=== PATIENT | male | born 1935 | race Caucasian/White ===

== ENCOUNTER → 2017-01-13 | Outpatient (CLI) | payer OTHER, MEDICARE | LOC: BMCIMAGING 14:18 | PROVIDERS: ATTEND Internal Medicine | DX: R06.2 Wheezing (principal); Z85.72 Personal history of non-Hodgkin lymphomas ==

== ENCOUNTER → 2017-01-28 | Outpatient (CLI) | payer OTHER, MEDICARE | LOC: FIMAGING 14:12 | PROVIDERS: ATTEND Internal Medicine | DX: J98.19 Other pulmonary collapse (principal); J98.09 Other diseases of bronchus, not elsewhere classified; R59.0 Localized enlarged lymph nodes ==

== ENCOUNTER 2017-03-10 10:27 | Day surgery (SDC) | payer OTHER, MEDICARE ==
[2017-03-10 11:27] LABS: HEMATOCRIT 43.2 % (40.0-51.0)
[2017-03-10] MEDS ORDERED: NS 1,000 ML IV SCH (11:30)
[2017-03-10 11:32] LABS: INR 1.06 (0.83-1.16); PROTIME(PATIENT) 13.7 SEC (12.0-15.0)
[2017-03-10 11:33] LABS: APTT 27.6 SEC (23.0-38.0)
[2017-03-10] MEDS ORDERED: fentaNYL 100 MCG/2 ML INJ ONE ×2 (11:33)
[2017-03-10] MEDS ORDERED: MIDAZOLAM 2 MG/2 ML VIAL ONE (11:33)
[2017-03-10] MEDS ORDERED: NALOXONE HCL 0.4 MG/ML INJ ONE (11:34)
[2017-03-10] MEDS ORDERED: FLUMAZENIL 0.5 MG/5 ML MDV IVP ONE (11:34)
[2017-03-10] MEDS ORDERED: IOPAMIDOL (ISOVUE-300) 100 ML BTL ONE (12:51)
[2017-03-10] MEDS ORDERED: LIDOCAINE 1% 300 MG/30 ML SDV ONE (13:44)
[2017-03-10 14:44] VITALS: BP 152/98; RESP 16
[2017-03-10 15:56] VITALS: O2SAT 92
[2017-03-10 15:58] VITALS: TEMP 97.3
== END 2017-03-10 15:50 | disposition home or self-care (01) ==
LOC: FIMAGING 10:27
PROVIDERS: ATTEND Internal Medicine Hematology & Oncology
PROC: BB2 Imaging, Respiratory System, Computerized Tomography (CT Scan) (ICD-10-PCS; principal; 2017-03-10 14:20)
DX: R59.0 Localized enlarged lymph nodes (principal); C85.90 Non-Hodgkin lymphoma, unspecified, unspecified site; R91.8 Other nonspecific abnormal finding of lung field; J98.19 Other pulmonary collapse
CPT/HCPCS: J2250; J2310; J3010; Q9967

== ENCOUNTER → 2017-04-08 | Day surgery (SDC) | payer OTHER, MEDICARE ==
[~2017-04-08] MED LIST: ACETAMINOPHEN 500 MG TAB PO PRN; BUPIVACAINE 0.5% 30 ML SDV ONE; HYDROCODONE/APAP 5/325 TAB PO PRN; LIDOCAINE 1% 2 ML INJ ID PRN; LR 1,000 ML IV ONE; MIDAZOLAM 2 MG/2 ML VIAL IVP ONE; MIDAZOLAM 2 MG/2 ML VIAL ONE; ONDANSETRON 4 MG/2 ML VIAL IVP PRN; PROPOFOL/EMULSION 500 MG/50 ML BOTTLE IV ONE; ceFAZolin 2 GM/DEXTROSE 100 ML IV ONE; fentaNYL 100 MCG/2 ML INJ ONE
--- NOTE | 2017-04-08 06:49 | PDANEPAE ---
ANE History of Present Illness here for mediastinoscopy ANE Past Medical History - Cardiovascular History Hx Hypertension: No Hx Arrhythmias: No Hx Chest Pain: No Hx Coronary Artery / Peripheral Vascular Disease: No Hx CHF / Valvular Disease: No Hx Palpitations: No - Pulmonary History Hx COPD: No Hx Asthma/Reactive Airway Disease: No Hx Recent Upper Respiratory Infection: Yes Hx Oxygen in Use at Home: No Hx Sleep Apnea: No Pulmonary History Comment: RUL COLLAPSE 01/2017. URI 12/2016. trouble with lungs r/t NHL - reason for biopsy - Neurologic History Hx Cerebrovascular Accident: No Hx Seizures: No Hx Dementia: No - Endocrine History Hx Diabetes: No - Renal History Hx Renal Disorders: No - Liver History Hx Hepatic Disorders: No - Neurological & Psychiatric Hx Hx Neurological and Psychiatric Disorders: No - Cancer History Hx Cancer: Yes Cancer History Comment: Non-Hodgkins Lymphoma dx 1999 - Congenital Disorder History Hx Congenital Disorders: No - GI History Hx Gastrointestinal Disorders: No - Other Health History Other Health History: DVT RT THIGH MANY YRS AGO - Chronic Pain History Chronic Pain: No - Surgical History Prior Surgeries: RT hernia repair 2013. right great toe. tonsils. APPENDECTOMY. ACL ANE Review of Systems Review of systems is: negative Review of Systems: - Exercise capacity Exercise capacity: >=4 METS METS (RN): 3 METS ANE Patient History - Allergies Allergies/Adverse Reactions: No Allergies [NKDA] Allergy (Verified 03/04/17 14:57) - Home Medications Home medications: home medication list seen and reviewed Home Medications: Aspirin 81mg (*) DAILY 03/04/17 [Last Taken 04/03/17] Multi-Vitamin Daily DAILY 03/04/17 [Last Taken 04/03/17] - NPO status NPO Status: no food or drink >8 hours - Anes Hx Anes Hx: no prior problems - Smoking Hx Smoking Status: Former smoker - Family Anes Hx Family Hx Anesthesia Complications: denies ANE Labs/Vital Signs - Vital Signs Height: 177.8 cm Weight: 81.647 kg ANE Physical Exam - Airway Neck exam: FROM Mallampati Score: Class 2 Mouth exam: normal dental/mouth exam - Pulmonary Pulmonary: no respiratory distress - ASA Status ASA Status: III ANE Anesthesia Plan Anesthesia Plan: general endotracheal anesthesia
[2017-04-08 06:50] VITALS: PULSE 86
--- NOTE | 2017-04-08 06:57 | PDHPUP ---
History & Physical Update H&P update statement: This history and physical update is based on an assessment of the patient which was completed after admission or registration (within 24 hours), but prior to the surgery/procedure. H&P update: H&P reviewed & patient examined, no change in patient's condition since H&P completed
[2017-04-08 08:56] VITALS: TEMP 97.5
[2017-04-08 09:17] VITALS: BP 146/87; RESP 18; O2SAT 92
--- NOTE | 2017-04-09 12:01 | POSTANESTH ---
Post Anesthetic Evaluation Cardiovascular Status: Normal, Stable Respiratory Status: Normal, Stable Level of Consciousness/Mental Status: Can Participate in Eval Pain Control: Adequate, Prn Tx Ordered Nausea/Vomiting Control: Adequate, Prn Tx Ordered Complications Possibly Related to Anesthesia: None Noted
[2017-04-10 13:21] LABS: FINAL DIAGNOSIS See Comments; MICROSCOPIC DESCRIPTION See Comments
== END | disposition home or self-care (01) ==
LOC: FSGY 05:41
PROVIDERS: ATTEND Thoracic Surgery (Cardiothoracic Vascular Surgery)
PROC: 07B74ZX Excision of Thorax Lymphatic, Percutaneous Endoscopic Approach, Diagnostic (ICD-10-PCS; principal; 2017-04-08 07:15)
DX: C83.32 Diffuse large B-cell lymphoma, intrathoracic lymph nodes (principal); C82.32 Follicular lymphoma grade IIIa, intrathoracic lymph nodes; Z87.891 Personal history of nicotine dependence
CPT/HCPCS: 88184-90; 88185-91; J0690; J2250; J2704; J3010

== ENCOUNTER 2017-04-24 13:08 | Day surgery (SDC) | payer OTHER, MEDICARE ==
--- NOTE | 2017-04-24 07:41 | GHP ---
[f rep st] HISTORY AND PHYSICAL DATE OF ADMISSION: 04/24/2017 CHIEF COMPLAINT: Recurrent follicular lymphoma. HISTORY OF PRESENT ILLNESS: The patient is an 82-year-old with a history of recurrent lymphoma. He initially had lymphoma in the year 1999. He had a mediastinoscopy which did show follicular lymphoma. He requires a port for chemotherapy. He has had previous ports in his right chest. He feels quite well. PAST MEDICAL HISTORY: Lymphoma. PAST SURGICAL HISTORY: Biopsies. MEDICATIONS: Aspirin, multivitamins. ALLERGIES: No known drug allergies. REVIEW OF SYSTEMS: A 10-point review of systems is negative except for cough. PHYSICAL EXAMINATION: GENERAL: Pleasant, well-nourished, well-groomed man at visit with . HEENT: Normocephalic. No gross hearing deficits. Mucous membranes moist. Pupils equal and round. No scleral icterus. Neck: Well healed incision from mediastinoscopy. No signs of infection. LUNGS: Clear to auscultation bilaterally, decreased in the upper right field. CARDIAC: Regular rate. No peripheral edema. ABDOMEN: Deferred. SKIN: Warm and dry. MUSCULOSKELETAL: Normal gait, normal nails. PSYCH: Mood and affect normal. NEURO: Grossly intact. IMPRESSION AND PLAN: The patient is an 82-year-old with recurrent lymphoma. We will place a port for him. I will place this on the left side as he has had 2 previous ports on the right side and I am unable to determine if the access was through the same vein in order to avoid stenosis. I will use a low-profile Power Port. The risks and benefits, including, but not limited to, infection, bleeding, pneumothorax, acknowledging that he already has upper lobe collapse, were discussed. He had his questions answered to his satisfaction. /[id number]/MODL MTDD
[2017-04-24] MEDS ORDERED: BUPIVACAINE 0.5% 30 ML SDV ONE (14:07)
[2017-04-24] MEDS ORDERED: ceFAZolin 2 GM/SWFI 2 GM/20 ML SYR IVP ONE (14:52)
--- NOTE | 2017-04-24 15:02 | PDANEPAE ---
ANE History of Present Illness 82 year old male w/ NHL presents for left chest port placement. ANE Past Medical History - Cardiovascular History Hx Hypertension: No Hx Arrhythmias: No Hx Chest Pain: No Hx Coronary Artery / Peripheral Vascular Disease: No Hx CHF / Valvular Disease: No Hx Palpitations: No - Pulmonary History Hx COPD: No Hx Asthma/Reactive Airway Disease: No Hx Recent Upper Respiratory Infection: Yes Hx Oxygen in Use at Home: No Hx Sleep Apnea: No Sleep Apnea Screening Result - Last Documented: Negative Pulmonary History Comment: RUL COLLAPSE 01/2017. URI 12/2016. trouble with lungs r/t NHL - reason for biopsy - Neurologic History Hx Cerebrovascular Accident: No Hx Seizures: No Hx Dementia: No - Endocrine History Hx Diabetes: No Hypothyroid: No Hyperthyroid: No Obesity: no - Renal History Hx Renal Disorders: No - Liver History Hx Hepatic Disorders: No - Neurological & Psychiatric Hx Hx Neurological and Psychiatric Disorders: No - Cancer History Hx Cancer: Yes Cancer History Comment: Non-Hodgkins Lymphoma dx 1999 - Congenital Disorder History Hx Congenital Disorders: No - GI History Hx Gastrointestinal Disorders: No - Other Health History Other Health History: DVT RT THIGH MANY YRS AGO - Chronic Pain History Chronic Pain: No - Surgical History Prior Surgeries: 04/08/17 MEDIASTINOSCOPY WITH CROW. RT hernia repair 2013. right great toe. tonsils. APPENDECTOMY. ACL ANE Review of Systems Review of systems is: negative Review of Systems: - Exercise capacity Exercise capacity: >=4 METS METS (RN): 4 METS ANE Patient History - Allergies Allergies/Adverse Reactions: No Allergies [NKDA] Allergy (Verified 04/23/17 16:53) - Home Medications Home medications: home medication list seen and reviewed Home Medications: Aspirin 81mg (*) DAILY 03/04/17 [Last Taken 04/03/17] Multi-Vitamin Daily DAILY 03/04/17 [Last Taken 04/03/17] - NPO status NPO Since - Liquids (Date): 04/24/17 NPO Since - Liquids (Time): 06:00 NPO Since - Solids (Date): 04/23/17 NPO Since - Solids (Time): 22:00 - Anes Hx Anes Hx: post operative nausea - Smoking Hx Smoking Status: Former smoker Marijuana use: No - Alcohol Use Alcohol Use: Occasionally - Family Anes Hx Family Anes Hx: neg - N/A Family Hx Anesthesia Complications: NONE ANE Labs/Vital Signs - Vital Signs Vital Signs: reviewed preoperatively; see RN documention for details Blood Pressure: 147/94 Heart Rate: 73 Respiratory Rate: 16 O2 Sat (%): 95 Height: 177.8 cm Weight: 81.647 kg ANE Physical Exam - Airway Neck exam: FROM Mallampati Score: Class 2 Mouth exam: normal dental/mouth exam - Pulmonary Pulmonary: no respiratory distress - Cardiovascular Cardiovascular: regular rate and rhythym - ASA Status ASA Status: III ANE Anesthesia Plan Anesthesia Plan: GA with mask Total IV Anesthesia: Yes
[2017-04-24] MEDS ORDERED: PROPOFOL/EMULSION 500 MG/50 ML BOTTLE IV ONE ×2 (15:09→15:54)
[2017-04-24] MEDS ORDERED: DEXAMETHASONE 4 MG/ML VIAL ONE (15:14)
[2017-04-24] MEDS ORDERED: ONDANSETRON 4 MG/2 ML VIAL ONE (15:14)
--- NOTE | 2017-04-24 16:09 | POSTOPPROG ---
Post Op Note Date of Operation: 04/24/17 Surgeon: Gerri Prado Anesthesiologist: artem Anesthesia: GET(General Endotracheal) Pre-op Diagnosis: lymphoma Post-op Diagnosis: same Indication: 82 yo with recurrent lymphoma Procedure: l ij slim power port Inf/Abcess present in the surg proc area at time of surgery?: No Depth: Superfical (Skin SQ) EBL: Minimal Specimen(s): none
[2017-04-24 16:43] VITALS: TEMP 97.3
[2017-04-24 17:03] VITALS: PULSE 63
[2017-04-24 17:37] VITALS: BP 140/90; RESP 15; O2SAT 94
--- NOTE | 2017-04-24 18:07 | POSTANESTH ---
Post Anesthetic Evaluation Cardiovascular Status: Normal, Stable, Similar to Pre-Op Cond Respiratory Status: Normal, Stable, Similar to Pre-op Cond. Level of Consciousness/Mental Status: Can Participate in Eval, Alert and Oriented Pain Control: Adequate, Prn Tx Ordered Nausea/Vomiting Control: Adequate, Prn Tx Ordered Complications Possibly Related to Anesthesia: None Noted
--- NOTE | 2017-04-25 09:06 | GOP ---
[f rep st] OPERATIVE REPORT DATE OF OPERATION: 04/24/2017 SURGEON: Gerri Prado MD ANESTHESIA: General. ANESTHESIOLOGIST: Tay Stevens MD PREOPERATIVE DIAGNOSIS: Lymphoma. POSTOPERATIVE DIAGNOSIS: Lymphoma. PROCEDURE PERFORMED: Left ultrasound-guided internal jugular PowerPort placement. FINDINGS: Tip in the SVC. SPECIMENS: None. ESTIMATED BLOOD LOSS: 10 cc. INDICATIONS: The patient is an 82-year-old with recurrent follicular lymphoma. He presents for port placement. DESCRIPTION OF PROCEDURE: The patient was brought into the operating room and placed supine on the table, and general anesthesia was administered. His bilateral neck and chest were prepped and draped in the usual sterile fashion. He was placed in the Trendelenburg position. Using ultrasound, I accessed his left internal jugular vein on the first attempt with dark return of blood flow. I threaded the guidewire and removed the needle. Placement was confirmed with fluoroscopy. I created a pocket to accommodate the port in the left chest. I tunneled this up to the insertion site. The catheter was measured under fluoroscopy and cut to size. Using the Seldinger technique, I placed a dilator and sheath over the wire. I removed the wire and the dilator. I threaded the catheter through the sheath and peeled away the sheath. Placement was confirmed with fluoroscopy. The port withdrew blood easily and was flushed with 5 cc of heparin. Hemostasis was achieved. The pocket was closed with 3-0 Vicryl followed by 4-0 Monocryl. Dermabond applied. He was awakened in the operating room, extubated and transferred to PACU in stable condition. The chest x-ray showed the tip at the cavoatrial junction without pneumothorax. /[id number]/MODL MTDD
== END 2017-04-24 17:39 | disposition home or self-care (01) ==
LOC: FSGY 13:08
PROVIDERS: ATTEND Surgery
PROC: 02HV33Z Insertion of Infusion Device into Superior Vena Cava, Percutaneous Approach (ICD-10-PCS; principal; 2017-04-24 14:45)
PROC: 0JH63XZ Insertion of Tunneled Vascular Access Device into Chest Subcutaneous Tissue and Fascia, Percutaneous Approach (ICD-10-PCS; principal; 2017-04-24 14:45)
DX: C83.30 Diffuse large B-cell lymphoma, unspecified site (principal)
CPT/HCPCS: C1788; J0690; J1100; J1642; J2405; J2704

== ENCOUNTER → 2017-09-04 | Outpatient (CLI) | payer OTHER, MEDICARE | LOC: FIMAGING 09:22 | PROVIDERS: ATTEND Nurse Practitioner | DX: J98.4 Other disorders of lung (principal) ==

== ENCOUNTER 2017-10-02 09:48 | Observation (INO) | payer OTHER, MEDICARE ==
--- NOTE | 2017-10-02 10:16 | EDPHY ---
HPI/HX/ROS/PE/MDM Narrative: CHIEF COMPLAINT: Right lower chest pain HPI: The patient is an 82 y/o male with non-Hodgkin's lymphoma who recently completed chemotherapy and complains of right lower chest pain onset 3 days ago. He has had "recurring flu symptoms for 8 weeks" with fever, cough, and chills, since he was diagnosed with the flu in July. His last chemotherapy treatment was 3 weeks ago. Three days ago he developed this lower chest pain he describes as in his lung and says it sometimes creeps across his upper abdomen. No change in shortness of breath symptoms. REVIEW OF SYSTEMS: Aside from elements discussed in the HPI, a comprehensive 10-point review of systems was reviewed and is negative. PMH: Non-Hodgkin's and follicular lymphoma post biopsies; appendectomy; hernia repair; tonsillectomy; toe surgery SOCIAL HISTORY: Nonsmoker. Alcohol occasionally. Retired. . Oncologist: Dr. Segovia. Prior medical records reviewed including [facility] note 02/12/17 for follicular lymphoma PHYSICAL EXAM: General:Patient is alert, in no acute distress. ENT:Eyes are normal to inspection. ENT inspection normal. Neck: Normal inspection. Full range of motion. Respiratory:No respiratory distress. Breath sounds normal bilaterally. Cardiovascular: Regular rate and rhythm. Strong peripheral pulses. Normal cap refill. Port left chest. Abdomen:The abdomen is nontender to palpation. There are no peritoneal signs. Back: Normal to inspection. No tenderness to palpation. Skin: Normal color. No rash. Warm and dry. Extremities: Normal appearance. Full range of motion. Neuro: Oriented x3. Normal motor function. Normal sensory function. ED Course: This is an 82 y/o male with non-Hogkin's lymphoma who completed chemotherapy 3 weeks ago and complains of a 3-day history of right lower chest pain. He's had flu-like symptoms underlying this for the last 8 weeks. He is generally elderly but well-appearing on exam. Plan for labs and chest x-ray. Chest x-ray shows nothing acute. D-dimer elevated at 5.33. Chest CTA ordered. Chest CTA shows scattered bilateral PEs. Reassessed patient and discussed work up. Recommended admission, which he agrees to. MESHA Lovenox ordered. Spoke with hospitalist service. accepts admission. MDM: I see no signs of TAD, PNA, ACS, sepsis or severe hypoxia. - Data Points Imaging Results: Imaging Impressions Chest X-Ray 10/02/17 10:16 Impression: 1. Stable prominent interstitial markings at the lung bases probably representing chronic fibrotic change or atelectasis. Chest/Thorax CTA 10/02/17 11:15 Impression: 1. Small volume of segmental/subsegmental pulmonary emboli. 2. Indeterminate consolidation, possibly related to infarct, atelectasis, or other etiology. Short-term follow-up CT is recommended in 3 months. 3. Coronary artery atherosclerosis in the LAD. 4. Additional findings as above. Findings discussed with Floyd Marte MD, 10/02/2017 at 12:04. Imaging: Discussed imaging studies w/ call center team leader Radiologist, I viewed and interpreted images myself Laboratory Results: Laboratory Results 10/02/17 10:18 10/02/17 10:18 10/02/17 10/02/17 10/02/17 10:18 10:18 10:18 WBC 3.91 10^3/uL 10^3/uL (3.80-9.50) RBC 3.81 10^6/uL L 10^6/uL (4.40-6.38) Hgb 11.9 g/dL L g/dL (13.7-17.5) Hct 35.1 % L % (40.0-51.0) MCV 92.1 fL fL (81.5-99.8) MCH 31.2 pg pg (27.9-34.1) MCHC 33.9 g/dL g/dL (32.4-36.7) RDW 15.0 % % (11.5-15.2) Plt Count 116 10^3/uL L 10^3/uL (150-400) MPV 9.3 fL fL (8.7-11.7) Neut % (Auto) Not Reported Lymph % (Auto) Not Reported Stanley % (Auto) Not Reported Eos % (Auto) Not Reported Baso % (Auto) Not Reported Nucleat RBC Rel Count 0.0 % % (0.0-0.2) Absolute Neuts (auto) Not Reported Absolute Lymphs (auto) Not Reported Absolute Monos (auto) Not Reported Absolute Eos (auto) Not Reported Absolute Basos (auto) Not Reported Absolute Nucleated RBC 0.00 10^3/uL 10^3/uL (0-0.01) Immature Gran % Not Reported Seg Neutrophils % 68 % % Band Neutrophils % 2 % % Lymphocytes % 7 % % Monocytes % 21 % % Eosinophils % 1 % % Basophils % 1 % % Immature Gran # Not Reported Absolute Seg Neuts 2.66 10^/uL 10^/uL (1.70-6.50) Absolute Band Neuts 0.08 10^3/uL 10^3/uL (0.00-0.70) Absolute Lymphocytes 0.27 10^3/uL L 10^3/uL (1.00-3.00) Absolute Monocytes 0.82 10^3/uL H 10^3/uL (0.30-0.80) Absolute Eosinophils 0.04 10^3/uL 10^3/uL (0.03-0.40) Absolute Basophils 0.04 10^3/uL 10^3/uL (0.02-0.10) RBC/WBC/PLT Morphology NORMAL (NORMAL) Platelet Estimate DECREASED L (ADEQ) Smear Review By Pending D-Dimer 5.33 ug/mLFEU H ug/mLFEU (0.00-0.50) Sodium 138 mEq/L mEq/L (135-145) Potassium 3.7 mEq/L mEq/L (3.5-5.2) Chloride 99 mEq/L mEq/L (97-110) Carbon Dioxide 26 mEq/l mEq/l (22-31) Anion Gap 13 mEq/L mEq/L (8-16) BUN 20 mg/dL mg/dL (7-23) Creatinine 1.0 mg/dL mg/dL (0.7-1.3) Estimated GFR > 60 Glucose 110 mg/dL H mg/dL (70-100) Calcium 9.2 mg/dL mg/dL (8.5-10.4) Troponin I < 0.012 ng/mL ng/mL (0.000-0.034) General Time Seen by Provider: 10/02/17 09:55 Initial Vital Signs: Initial Vital Signs Heart Rate 94 10/02/17 09:49 Respiratory Rate 18 10/02/17 09:49 Blood Pressure 129/100 H 10/02/17 09:49 O2 Sat (%) 97 10/02/17 09:49 O2 Delivery Mode Room Air Allergies/Adverse Reactions: No Allergies [NKDA] Allergy (Verified 04/23/17 16:53) Home Medications: Medication Instructions Recorded Aspirin [Aspirin 81mg (*)] 81 mg PO DAILY #0 03/04/17 Multivitamins [Multivitamin (*)] 1 each PO DAILY #0 03/04/17 Departure - Departure Disposition: [facility] Inpatient Acute Clinical Impression: Pulmonary embolism, bilateral Condition: Fair Report Scribed for: Floyd Marte Report Scribed by: Sari Leo Date of Report: 10/02/17 Time of Report: 10:18 Physician Review and Approval Statement: Portions of this note were transcribed by an ED scribe. I personally performed the history, physical exam, and medical decision making; and confirm the accuracy of the information in the transcribed note.
[2017-10-02 10:27] LABS: PLATELET COUNT 116 10^3/uL (150-400)
[2017-10-02] MEDS ORDERED: IOPAMIDOL (ISOVUE 370) 100 ML BTL IV ONE (11:22)
[2017-10-02] MEDS ORDERED: ENOXAPARIN 80 MG/0.8 ML SYR SC ONE (12:25)
[2017-10-02] MEDS ORDERED: ZOLPIDEM TARTRATE 5 MG TAB PO PRN (13:16)
[2017-10-02] MEDS ORDERED: ACETAMINOPHEN 325 MG TAB PO PRN (13:16)
[2017-10-02] MEDS ORDERED: ONDANSETRON DISINTEGRATING 4 MG TAB PO PRN (13:16)
[2017-10-02] MEDS ORDERED: ONDANSETRON 4 MG/2 ML VIAL IVP PRN (13:16)
--- NOTE | 2017-10-02 13:20 | PDGENHP ---
History and Physical History and Physical: CC: Sent from ER with diagnosis of PE, right-sided chest ache HISTORY: This patient who is being treated for lymphoma was doing reasonably well but around a week ago notice some swelling in both calves and ankles. He did not think much of this but worse some compression stockings and has had a noticeable decrease in that swelling. There was no associated pain or fever or injury. He noticed an onset of add a at the low lateral right ribcage a couple of days ago and this is persisted. It is not necessarily pleuritic and is not associated with any cough shortness of breath or fever. There was no injury and it is not aggravated by any other movements. He came to ER for evaluation and on CT scan has several small subsegmental pulmonary emboli and a probable small left lower lobe infarct, no pleural abnormalities noted. He is given a dose of Lovenox and is now admitted to the hospital. Patient has a recurrence of his follicular cell lymphoma. This occurrence was in March of 2017 with abdominal adenopathy. He has been receiving Treanda and Gazyva, received his 6th of 6 doses on September 15. He is to have follow-up abdominal CT scan on October 15. He has not had any other side effects of chemotherapy that he knows about. The patient does have 1 prior history of DVT in the leg when he was being treated with chemotherapy for his lymphoma about 5 years ago. No other thromboembolic episodes. He is not a smoker, has no recent travel, no injuries no immobilization and there is no family history of thromboembolic disease ROS: A comprehensive 10 system review revealed no other significant findings PAST MEDICAL HISTORY: -DVT of leg 5 years ago while being treated for lymphoma -follicular lymphoma originally diagnosed in 1999, initially located in his jaw. He has had chemotherapy then and has had recurrences treated with chemotherapy most recently a recurrence in his abdomen in lymph nodes in March 2017. He has been treated for that recurrence with treanda and gazyva -hernia repair -Appendectomy FAMILY MEDICAL HISTORY: No concerning related illnesses SOCIAL HISTORY: Retired, lives with his who is here at the bedside and very supportive No tobacco very little alcohol MEDICATIONS: The patients list has been reconciled by our clinical pharmacist in the EMR. I have reviewed the list and ordered appropriate medicines. 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, no focal weakness IV site: looks normal LABORATORY DATA: Mild normocytic anemia and thrombocytopenia otherwise normal CBC Unremarkable chemistry RADIOLOGY STUDIES: I reviewed CT scan of his chest done today and my review of the images shows 3 small subsegmental bilateral pulmonary emboli and a small left lower lobe pulmonary parenchymal density most consistent with a small infarct, could not rule out either infection or tumor based on its appearance ASSESSMENT: -acute pulmonary emboli without evidence of shock or respiratory failure -small lesion in left lower lobe probably represents pulmonary infarct but this should be followed and compared to prior imaging and upcoming imaging to make sure does not represent disease related to his lymphoma -recent swelling in both legs this past week likely represented DVTs, will do ultrasound of legs to assess clot burden in his legs for prognostic factors -elevated blood pressure with no history of hypertension; suspect this is due to the anxiety of coming to the hospital but will follow this closely and treat as indicated -mild anemia and thrombocytopenia related to his lymphoma and chemotherapy -recent recurrence of follicular lymphoma, just finished his chemotherapy with planned reimaging in a couple weeks At this time he really has very small clot burden without any respiratory or hematologic change. From that standpoint this is very low risk but it is possible he has significant clot still in his legs. Notably the edema in his legs has decreased quite a bit though. Will want to watch initially in the hospital for stability but he may be able to go home very soon on therapy. As he has lymphoma and has just finished treatment will want a review with Oncology to see whether he should continue with Lovenox or switch to an oral therapy I reviewed the treatment rationale, bleeding risks and other issues of therapy for PE with patient and his at the bedside tonight PLANS: -placed on observation, may need to change to inpatient if there are clinical changes or we need ongoing monitoring here in hospital -continue Lovenox for now, discuss optimal anticoagulant regimen with oncology -ultrasound of his legs tonight to assess for clot their -follow blood pressure closely and treat if it remains difficult elevated -he should have follow-up of the lung density in the left lower lobe or at least comparison to previous lung imaging from the Oncology Clinic; if this is a new lesion it may be advisable to re-scanned it later this month 20 is having his follow-up abdominal study for his tumor I have reviewed the patient's case in detail with Dr. Bart Kramer I have reviewed the patient's past medical records as part of this assessment, including oncology clinic records and prior hospital records
[2017-10-02] MEDS ORDERED: OXYCODONE/APAP 5/325 TAB PO PRN (18:02)
[2017-10-02] MEDS: OXYCODONE/APAP 5/325 TAB PO PRN (21:50)
[2017-10-03] MEDS: OXYCODONE/APAP 5/325 TAB PO PRN (04:55)
[2017-10-03 05:19] LABS: PLATELET COUNT 119 10^3/uL (150-400)
[2017-10-03 08:45] VITALS: BP 129/94
[2017-10-03] MEDS ORDERED: MULTIVITAMINS 1 EACH TAB PO SCH (09:00)
[2017-10-03] MEDS ORDERED: RIVAROXABAN 15 MG TAB PO SCH (12:15)
--- NOTE | 2017-10-03 13:42 | GDS ---
[f rep st] DISCHARGE SUMMARY DISCHARGE DIAGNOSES: 1. Deep vein thrombosis. 2. Pulmonary emboli. PROCEDURES DONE: 1. CT angio of the chest. 2. Venous doppler. PHYSICAL EXAM: GENERAL: The patient is alert VITAL SIGNS: Afebrile at 36.4, pulse 89, respiratory rate is 18, blood pressure is 129/94, he is saturating 95% on room air. I have seen and evaluated t he patient on the day of discharge. HOSPITAL COURSE: The patient is an 82-year-old male who presented to the emergency room with complai nts of right-sided chest ache. He was evaluated and diagnosed with. 1. Acute pulmonary emboli. He did receive a consultation during this hospitalization from Dr. Rudolph aguilera Oncology. He has been initiated on Xarelto, dose has been given prior to disposition and a prescri ption has been provided for the patient at the time of disposition. He will continue his Xarelto 15 mg twice daily for a total of 21 days and transition to a regular therapeutic dose in the outpatient setting with his primary oncologist's recommendations. 2. Small lesion in the left lower lobe. This is likely secondary to the patient's pulmonary infarct . However, should be followed in the outpatient setting given his history of lymphoma. 3. Bilateral lower extremity edema. The patient does have DVTs. His edema is significantly improve d today. He will continue on the Xarelto. He has positive pulses bilaterally, and no further interv ention is warranted at this time. 4. Hypertension. This is in the setting of anxiety and has improved. 5. Anemia with thrombocytopenia. The patient has a diagnosis of lymphoma and chemotherapy. Labs are stable. 6. Recurrence of follicular lymphoma. The patient is on chemotherapy treatment. Will follow with h is Oncologist outside the hospital. DISPOSITION: He will be discharged home independently. FOLLOWUP: Will be with his primary Oncologist, Dr. Kramer. DISCHARGE MEDICATIONS: I have provided him a prescription for Percocet as well as Xarelto. PENDING STUDIES: There are no pending studies. /[id number]/MODL
--- NOTE | 2017-10-03 16:27 | GCON ---
[f rep st] CONSULTATION HEMATOLOGY/ONCOLOGY CONSULTATION REASON FOR CONSULTATION: PE. REQUESTING PHYSICIAN: . HISTORY OF PRESENT ILLNESS: The patient is an 82-year-old gentleman with a history of recurrent lymphoma treated by Dr. Segovia. He was admitted yesterday after presenting to the emergency room for right lower chest pain for the past few days. He reports having "the flu" recently with fever and cough, which had improved; and he thought maybe the new symptoms were related to that. In the emergency room, CT angiogram demonstrated small-volume segmental/ subsegmental pulmonary emboli. In comparison with chest CT 01/28/2017, left lower lobe consolidation was new as was some linear consolidation in the right lower lobe. Bilateral lower extremity Dopplers demonstrated no DVT in the left lower extremity. In the right, there was a duplicated right femoral vein with the smaller vessel occluded from the proximal to distal thigh with the larger adjacent femoral vein being patent. Popliteal clot also present. He was treated with Lovenox. He is accompanied by his and son. He feels ready to go home today. Overall, he feels well. He denies dyspnea. He has had relief of his chest pain with Percocet. He has had no bleeding. He has a past medical history of non-Hodgkin lymphoma. 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 This was treated with radiation. He has had multiple recurrences and therapy including R -CHOP. He had fludarabine/mitoxantrone/dexamethasone/Rituxan in 2003. It recurred in 2004 and he received Rituxan-Cytoxan, carboplatin, and etoposide, followed by autologous transplant. 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 In 2010, he had a recurrence in the chest and received 3 cycles of bendamustine/Rituxan. Most recently, he was found to have mediastinal disease. Mediastinoscopy with biopsy demonstrated 80% follicular lymphoma and 20% diffuse large B-cell lymphoma. He completed 6 cycles of bendamustine/obinutuzumab 09/15/2017. He is scheduled for restaging CT chest, abdomen and pelvis 10/15/[address] Segovia 10/19/2017. PAST MEDICAL HISTORY: 1. Lymphoma, as above. 2. History of DVT approximately 5 years ago. PAST SURGICAL HISTORY: Hernia repair and appendectomy. FAMILY HISTORY: Noncontributory. SOCIAL HISTORY: He is and lives with his in [place]. A nonsmoker. REVIEW OF SYSTEMS: CONSTITUTIONAL: He has good energy. No fever or chills. HEENT no oral ulcers. CARDIOVASCULAR: Per HPI. He noted some bilateral lower extremity edema about a week ago. RESPIRATORY: Per HPI. No dyspnea. GI: No abdominal pain. No changes in bowel habits. HEMATOLOGIC: No bruising or bleeding. PHYSICAL EXAM: VS reviewed. Gen: very pleasant, alert and oriented. Telling jokes. Lungs: breathing comfortably, CTA. CV: no lower extremity edema. Skin: no petechiae, ecchymoses. Neuro: non-focal. LABORATORY DATA: WBC 2.9, ANC1.92. Hemoglobin 11.1, platelets 119,000. Creatinine 0.9. RADIOLOGIC STUDIES: Per HPI. IMPRESSION: 1. Segmental/subsegmental pulmonary emboli. 2. Right lower extremity deep vein thrombosis in one arm of duplicated femoral vein and popliteal vein. 3. New pulmonary consolidation (left lower lobe, right lower lobe), possible pulmonary infarcts. 4. Diffuse large B-cell lymphoma and follicular lymphoma, status post 6 cycles of bendamustine/obinutuzumab. DISCUSSION: The patient is minimally symptomatic with only some right lower chest pain. It is not entirely clear if this is related to the pulmonary emboli or not. His most recent CT of the chest, abdomen, and pelvis (07/16/2017 ) demonstrated no significant intraabdominal involvement which might predispose to lower extremity DVT. He has adequate renal function and platelet count for anticoagulation with Xarelto, and he will be started on that today prior to discharge. He will have restaging CT chest, abdomen and pelvis later this month, and the pulmonary findings can be compared at that time. We will make arrangements for him to have earlier followup in the office upon discharge. /[id number]/MODL MTDD
== END 2017-10-03 13:00 | disposition home or self-care (01) ==
LOC: OBSVTOIN 12:26 → INTOOBSV 12:26 → F3N 13:15
PROVIDERS: ADMIT Internal Medicine; ATTEND Internal Medicine
DX: I26.99 Other pulmonary embolism without acute cor pulmonale (principal); I82.411 Acute embolism and thrombosis of right femoral vein; I82.431 Acute embolism and thrombosis of right popliteal vein; C82.92 Follicular lymphoma, unspecified, intrathoracic lymph nodes; C83.32 Diffuse large B-cell lymphoma, intrathoracic lymph nodes; R91.8 Other nonspecific abnormal finding of lung field; D69.59 Other secondary thrombocytopenia; D64.81 Anemia due to antineoplastic chemotherapy; R60.9 Edema, unspecified; I10 Essential (primary) hypertension; Z86.718 Personal history of other venous thrombosis and embolism; Z87.891 Personal history of nicotine dependence
CPT/HCPCS: 71046; 71275; 93970; 99285; G0378; J1642; J1650; Q9967

== ENCOUNTER 2017-10-10 11:40 | Emergency (ER) | payer OTHER, MEDICARE ==
--- NOTE | 2017-10-10 12:42 | EDPHY ---
H & P Time Seen by Provider: 10/10/17 12:20 HPI/ROS: HISTORY OF PRESENT ILLNESS: Patient states he has had abdominal pain since approximately 10/03. He has complex past medical history with non-Hodgkin's lymphoma diagnosed 18 years ago. He has had several recurrences with most recent recurrence in January of 2017. He recently finished his 6th round of chemotherapy under the care of Dr. Segovia. He states he has had flu-like symptoms with fatigue, chills, decreased appetite and night sweats for several months. On the 03 of October he had right upper quadrant abdominal pain that was sharp, intermittent. Sometimes only 1-2 seconds. Min to hours in between episodes. Much worse at night with constant"chronic, dull pain under the rib cage". He states he has been taking 3-4 Percocet every night for this pain. He denies nausea, vomiting, diarrhea or constipation. He has had weight loss. No fevers. Patient also received a CT PET scan yesterday at [facility] which was reviewed by Dr. Segovia with no evidence or explanation for the abdominal pain or pathology. Also recently diagnosed with pulmonary embolism and started on Xarelto. This was discovered on the 02 of October. REVIEW OF SYSTEMS: Constitutional: No fever, no chills. Eyes: No discharge. ENT: No sore throat. Cardiovascular: No chest pain, no palpitations. Respiratory: No cough, no shortness of breath. Gastrointestinal: Per HPI Genitourinary: No dysuria. Musculoskeletal: No back pain. Skin: No rashes. Neurological: No headache. General Appearance: Alert, no distress. Eyes: Pupils equal and round no pallor or injection. ENT, Mouth: Mucous membranes moist. Respiratory: There are no retractions, lungs are clear to auscultation. Cardiovascular: Regular rate and rhythm. Normal femoral pulses. No edema. Gastrointestinal: Abdomen is soft and nontender, no masses, bowel sounds normal. No CVA tenderness. Neurological: Awake and alert, no focal neurologic deficits. Skin: Warm and dry, no rashes. Musculoskeletal: Neck is supple nontender. Extremities are symmetrical, full range of motion, no edema. Psychiatric: Patient is oriented X 3, there is no agitation. Medical/surgical history: Non-Hodgkin's lymphoma, pulmonary embolism Social history: lives with . Nonsmoker. Smoking Status: Former smoker Constitutional: Initial Vital Signs Temperature (C) 36.6 C 10/10/17 11:46 Heart Rate 90 10/10/17 11:46 Respiratory Rate 16 10/10/17 11:46 Blood Pressure 118/86 H 10/10/17 11:46 O2 Sat (%) 94 10/10/17 11:46 O2 Delivery Mode Room Air Allergies/Adverse Reactions: No Allergies [NKDA] Allergy (Verified 04/23/17 16:53) Home Medications: Medication Instructions Recorded Multivitamins [Multivitamin (*)] 1 each PO DAILY #0 03/04/17 Acetaminophen [Tylenol 325mg (*)] 650 mg PO Q4HRS PRN tab 10/03/17 Rivaroxaban [Xarelto 15mg (*)] 15 mg PO BID #42 tab 10/03/17 oxyCODONE HCL/ACETAMINOPHEN 1 each PO Q6 #15 tablet 10/03/17 [Percocet 5-325 mg Tablet] oxyCODONE HCL/ACETAMINOPHEN 1 each PO Q6-8PRN PRN 3 Days #10 10/10/17 [Percocet 5-325 mg Tablet] tablet Medical Decision Making - Diagnostics Imaging Results: Chest x-ray no acute findings. Ultrasound sludge in gallbladder but no definitive signs of cholecystitis. Otherwise normal ultrasound of the abdomen. Imaging: Discussed imaging studies w/ entrepreneur Radiologist, I viewed and interpreted images myself ED Course/Re-evaluation: Ultrasound in Room obtaining images. Re-evaluation after ultrasound results obtained, no change, a no tenderness to abdomen, no peritoneal findings. Discussed with Dr. Josy Funes, oncology, at 2:26 p.m.. Plan for follow-up as scheduled with Dr. Segovia on Thursday. Differential Diagnosis: Differential diagnosis includes but is not limited to worsening non-Hodgkin's lymphoma, cholecystitis, bowel obstruction, gastroenteritis, pleurisy. After evaluation unclear cause of this patient's intermittent right upper quadrant pain. Admittedly worse at night but no definitive findings of cholecystitis or other biliary disease. No nausea, vomiting, diarrhea to suggest gastroenteritis. No signs of obstruction or other acute surgical abdomen. Discussed other workup including possible HIDA scan if symptoms persist. Will write for Percocet for several days until patient able to follow up with Oncology on Thursday. Discussed with Dr. Josy Samuel. He has appointment with Dr. Segovia on Ady morning. Patient understands to return to the emergency department if symptoms progress. Stable for discharge. - Data Points Laboratory Results: Laboratory Results 10/10/17 12:55 10/10/17 12:55 Medications Given: Discontinued Medications Heparin Sodium (Porcine) (Heparin Lock Flush) 500 unit IVP EDNOW ONE Stop: 10/10/17 14:58 Last Admin: 10/10/17 15:04 Dose: 500 unit Departure - Departure Disposition: Home, Routine, Self-Care Clinical Impression: Abdominal pain Condition: Good Instructions: Abdominal Pain (ED) Additional Instructions: Follow-up with Dr. Segovia on Thursday as scheduled. Return to the emergency department if he develops fevers, more severe pain or other concerning new symptoms. Referrals: Jennifer Sainz MD [Primary Care Provider] - As per Instructions Prescriptions: oxyCODONE HCL/ACETAMINOPHEN [Percocet 5-325 mg Tablet] 1 each PO Q6-8PRN PRN 3 Days #10 tablet PRN Reason: Pain, Moderate
[2017-10-10 13:04] LABS: PLATELET COUNT 203 10^3/uL (150-400)
[2017-10-10 15:05] VITALS: BP 145/94
== END 2017-10-10 15:06 | disposition home or self-care (01) ==
DX: R10.9 Unspecified abdominal pain (principal); Z87.891 Personal history of nicotine dependence
CPT/HCPCS: 71046; 76700; 96374; 99285; J1642

== ENCOUNTER 2017-11-10 05:45 | Day surgery (SDC) | payer OTHER, MEDICARE ==
[2017-11-10] MEDS ORDERED: ceFAZolin 2 GM/SWFI 2 GM/20 ML SYR IVP ONE (05:57)
[2017-11-10] MEDS ORDERED: LR 1,000 ML IV ONE (05:57)
[2017-11-10] MEDS ORDERED: LIDOCAINE 1% 2 ML INJ ID PRN (05:57)
--- NOTE | 2017-11-10 06:39 | PDGENHP ---
History and Physical - Chief Complaint inactive infusaport - History of Present Illness 82 yo male with recurrent nonHodgkin's lymphoma and most recent flare treated in the past year with 6 cycles of chemo via left sided power port. No infusions in the past month and no plans to continue maintenance chemo. Referred by oncologist Dr Segovia for elective removal of catheter. Chemo treatment complicated by small volume bilateral PEs in August 2017 and is on Xarelto. History Information - Allergies/Home Medication List Allergies/Adverse Reactions: No Allergies [NKDA] Allergy (Verified 11/03/17 10:10) Home Medications: Multivitamins [Multivitamin (*)] #0 03/04/17 [Last Taken 11/03/17] Rivaroxaban [Xarelto 15mg (*)] 11/03/17 [Last Taken 11/09/17 18:00] I have personally reviewed and updated: medical history, social history, surgical history - Past Medical History cancer (NonHodgkin's lymphoma 2000, follicular grade 3A and diffuse large B cell ), DVT (RLE, 5-6 yrs ago, during chemo), pulmonary embolism (August 2017) Additional medical history: Severe abdominal discomfort x 1 month of unknown etiology, spontaneously resolved about a week ago; assoc with 15 lb wt loss - Surgical History Additional surgical history: mediastinoscopic LN bx Mar 2017, Neo. US guided placement left IJ power port 04/24/17, Johan - Social History Smoking Status: Former smoker Review of Systems Review of Systems: Constitutional: Reports: no symptoms Cardiac: Reports: no symptoms Respiratory: Reports: no symptoms Gastrointestinal: Reports: no symptoms Muscolosketal: Reports: no symptoms Skin: Reports: no symptoms Hematologic/Lymphatic: Reports: other (no bleeding issues on Xarelto) Physical Exam Physical Exam: Temp Pulse Resp BP Pulse Ox 36.6 C 83 16 113/80 94 11/10/17 06:07 11/10/17 06:07 11/10/17 06:07 11/10/17 06:07 11/10/17 06:07 Constitutional: no apparent distress, appears nourished Eyes: anicteric sclera, other (PER) Ears, Nose, Mouth, Throat: moist mucous membranes, hearing normal Cardiovascular: regular rate and rhythym, other (left infraclavicular port palpable, overlying skin intact without erythema) Respiratory: no respiratory distress, clear to auscultation Gastrointestinal: soft, non-tender abdomen Genitourinary: no bladder fullness Skin: warm, normal color Musculoskeletal: other (symmetric tone) Assessment & Plan Assessment: Indwelling chemo cath no longer in use Plan: Removal chemo cath per Dr Larson Home when recovered from anesthesia
[2017-11-10] MEDS ORDERED: BUPIVACAINE 0.25% 30 ML SDV ONE (06:56)
[2017-11-10] MEDS ORDERED: EPINEPHrine 1 MG/ML INJ ONE (06:56)
[2017-11-10] MEDS ORDERED: MIDAZOLAM 2 MG/2 ML VIAL IVP ONE (07:07)
[2017-11-10] MEDS ORDERED: MIDAZOLAM 2 MG/2 ML VIAL ONE (07:08)
--- NOTE | 2017-11-10 07:10 | PDANEPAE ---
ANE History of Present Illness h/o cancer ANE Past Medical History - Cardiovascular History Hx Hypertension: No Hx Arrhythmias: No Hx Chest Pain: No Hx Coronary Artery / Peripheral Vascular Disease: No Hx CHF / Valvular Disease: No Hx Palpitations: No Cardiovascular History Comment: hx of dvt - Pulmonary History Hx COPD: No Hx Asthma/Reactive Airway Disease: No Hx Recent Upper Respiratory Infection: Yes Hx Oxygen in Use at Home: No Hx Sleep Apnea: No Sleep Apnea Screening Result - Last Documented: Negative Pulmonary History Comment: recent bilateral PE 10/02/17 admitted to [facility]. RUL COLLAPSE 01/2017. URI 12/2016. trouble with lungs r/t NHL - reason for biopsy - Neurologic History Hx Cerebrovascular Accident: No Hx Seizures: No Hx Dementia: No - Endocrine History Hx Diabetes: No - Renal History Hx Renal Disorders: No - Liver History Hx Hepatic Disorders: No - Neurological & Psychiatric Hx Hx Neurological and Psychiatric Disorders: No - Cancer History Hx Cancer: Yes Cancer History Comment: recurrent follicular lymphoma- currently. Non-Hodgkins Lymphoma dx 1999 - Congenital Disorder History Hx Congenital Disorders: No - GI History Hx Gastrointestinal Disorders: No - Other Health History Other Health History: wear glasses - Chronic Pain History Chronic Pain: No - Surgical History Prior Surgeries: 04/24/17 port placement with radha godwin not comfortable doing it per pt. 04/08/17 MEDIASTINOSCOPY WITH CROW. RT hernia repair 2013. right great toe. tonsils. APPENDECTOMY. ACL ANE Review of Systems Review of Systems: - Exercise capacity METS (RN): 4 METS ANE Patient History - Allergies Allergies/Adverse Reactions: No Allergies [NKDA] Allergy (Verified 11/03/17 10:10) - Home Medications Home Medications: Multivitamins [Multivitamin (*)] #0 03/04/17 [Last Taken 11/03/17] Rivaroxaban [Xarelto 15mg (*)] 11/03/17 [Last Taken 11/09/17 18:00] - NPO status NPO Since - Liquids (Date): 11/09/17 NPO Since - Liquids (Time): 20:00 NPO Since - Solids (Date): 11/09/17 NPO Since - Solids (Time): 20:00 - Smoking Hx Smoking Status: Former smoker - Family Anes Hx Family Hx Anesthesia Complications: NONE ANE Labs/Vital Signs - Vital Signs Blood Pressure: 113/80 Heart Rate: 83 Respiratory Rate: 16 O2 Sat (%): 94 Height: 177.8 cm Weight: 81.647 kg ANE Physical Exam - Airway Neck exam: FROM Mallampati Score: Class 3 Mouth exam: normal dental/mouth exam - Pulmonary Pulmonary: no respiratory distress - Cardiovascular Cardiovascular: regular rate and rhythym - ASA Status ASA Status: II ANE Anesthesia Plan Anesthesia Plan: MAC
[2017-11-10] MEDS ORDERED: PROPOFOL/EMULSION 500 MG/50 ML BOTTLE IV ONE (07:12)
[2017-11-10] MEDS ORDERED: fentaNYL 100 MCG/2 ML INJ ONE (07:12)
[2017-11-10] MEDS ORDERED: HYDROCODONE/APAP 5/325 TAB PO PRN (07:42)
[2017-11-10] MEDS ORDERED: DEXAMETHASONE 4 MG/ML VIAL IVP PRN (07:42)
[2017-11-10] MEDS ORDERED: fentaNYL 100 MCG/2 ML INJ IVP PRN (07:42)
[2017-11-10] MEDS ORDERED: HYDROmorphONE/DILAUDID 2 MG/ML INJ IVP PRN (07:42)
[2017-11-10] MEDS ORDERED: NALOXONE HCL 0.4 MG/ML INJ IVP PRN (07:42)
[2017-11-10] MEDS ORDERED: PROMETHAZINE HCL 25 MG/ML INJ IVP PRN (07:42)
[2017-11-10 08:17] VITALS: BP 119/70
--- NOTE | 2017-11-10 11:54 | GOP ---
[f rep st] OPERATIVE REPORT DATE OF OPERATION: 11/10/2017 SURGEON: Travis aLrson DO PREOPERATIVE DIAGNOSIS: Retained left [id number]. POSTOPERATIVE DIAGNOSIS: Retained left [id number]. PROCEDURE PERFORMED: Removal of [id number]. FINDINGS: DESCRIPTION OF PROCEDURE: Under monitored local anesthetic, the patient was prepped and draped in st erile classical manner. Bpspec-Y-Jyir was identified and 0.25% Marcaine with epinephrine was used to infiltrate over the prosthesis. A 1 cm incision was made down to the prosthesis. It was extracted in total without difficulty. The wound was closed with Vicryl and Dexon. Dressings were applied. P atient was returned to recovery room in stable condition. /[id number]/MODL
== END 2017-11-10 08:40 | disposition home or self-care (01) ==
LOC: FSGY 05:45
PROVIDERS: ATTEND Thoracic Surgery (Cardiothoracic Vascular Surgery)
PROC: 0JPT0XZ Removal of Tunneled Vascular Access Device from Trunk Subcutaneous Tissue and Fascia, Open Approach (ICD-10-PCS; principal; 2017-11-10 07:15)
DX: Z45.2 Encounter for adjustment and management of vascular access device (principal); C82.92 Follicular lymphoma, unspecified, intrathoracic lymph nodes; C83.32 Diffuse large B-cell lymphoma, intrathoracic lymph nodes; Z79.01 Long term (current) use of anticoagulants; Z87.891 Personal history of nicotine dependence; Z86.711 Personal history of pulmonary embolism; Z86.718 Personal history of other venous thrombosis and embolism
CPT/HCPCS: J0171; J0690; J2250; J2704; J3010

== ENCOUNTER → 2018-01-04 | Outpatient (CLI) | payer OTHER, MEDICARE | LOC: BMCIMAGING 16:08 | PROVIDERS: ATTEND Internal Medicine | DX: G56.21 Lesion of ulnar nerve, right upper limb (principal); M47.22 Other spondylosis with radiculopathy, cervical region ==

== ENCOUNTER → 2018-07-22 | Outpatient (CLI) | payer OTHER, MEDICARE | LOC: BMCIMAGING 14:07 | PROVIDERS: ATTEND Internal Medicine | DX: R05 Cough (principal); J98.11 Atelectasis ==

== ENCOUNTER → 2018-08-01 | Outpatient (CLI) | payer OTHER, MEDICARE | LOC: FIMAGING 11:06 | PROVIDERS: ATTEND Nurse Practitioner | DX: J06.9 Acute upper respiratory infection, unspecified (principal) ==